=== PATIENT | male | born 1980 | race Caucasian/White ===

== ENCOUNTER 2016-09-02 08:55 | Day surgery (SDC) | payer OTHER, MEDICAID ==
[~2016-09-02 08:55] MED LIST: Lactated Ringers 1,000 ML IV SCH; Sodium Chloride 0.9% 10 ML Syringe FLUSH PRN
[2016-09-02] MEDS ORDERED: Lactated Ringers 1,000 ML IV SCH ×2 (09:00→11:00)
[2016-09-02] MEDS ORDERED: Sodium Chloride 0.9% 10 ML Syringe FLUSH PRN (09:00)
[2016-09-02] MEDS ORDERED: Morphine 10 MG/ML Syringe ONE ×2 (10:18→11:09)
[2016-09-02] MEDS ORDERED: Acetaminophen/HYDROcodone 325-10 MG Tab PO PRN (10:48)
[2016-09-02] MEDS ORDERED: Bupivacaine 0.5% 30 ML SDV ONE (11:08)
[2016-09-02] MEDS ORDERED: Ketorolac 30 MG/ML SDV IVPUSH ONE (11:40)
[2016-09-02] MEDS ORDERED: Dexamethasone 4 MG/ML 5 ML MDV IVPUSH ONE (11:40)
[2016-09-02] MEDS ORDERED: Propofol 200 MG/20 ML SDV IV ONE (11:40)
[2016-09-02] MEDS ORDERED: Ondansetron 4 MG/2 ML SDV IVPUSH ONE (11:40)
[2016-09-02] MEDS ORDERED: Succinylcholine/Normal Saline 200 MG/10 ML Syringe IV ONE (11:40)
[2016-09-02] MEDS ORDERED: Rocuronium 50 MG/5 ML Vial IV ONE (11:40)
[2016-09-02] MEDS ORDERED: Midazolam 1 MG/ML 2 ML SDV IV ONE (11:40)
[2016-09-02] MEDS ORDERED: HYDROmorphone 2 MG/ML SDV IV ONE (11:40)
[2016-09-02] MEDS ORDERED: Phenylephrine 1% 10 MG/ML SDV IV ONE (11:40)
[2016-09-02] MEDS ORDERED: Lactated Ringers 1,000 ML IV ONE (11:40)
[2016-09-02] MEDS ORDERED: fentaNYL 100 MCG/2 ML SDV IV ONE (11:40)
[2016-09-02 13:49] VITALS: BP 120/54
--- NOTE | 2016-09-02 18:57 | OR ---
DATE OF OPERATION: 09/02/2016 SURGEON: Girish Aguayo MD PREOPERATIVE DIAGNOSES: 1. Infraspinatus tear of left shoulder. 2. Adhesive capsulitis, left shoulder. POSTOPERATIVE DIAGNOSES: 1. Infraspinatus tear of left shoulder. 2. Adhesive capsulitis, left shoulder. PROCEDURE PERFORMED: 1. Repair of infraspinatus tendon tear of rotator cuff, left shoulder. 2. Closed manipulation of left shoulder with partial acromionectomy and incision of coracoacromial ligament. OPERATIVE NOTE: The patient was taken to the operating room, placed on the operating room table in supine position. General anesthetic was then administered. The patient was then carefully positioned in the beach chair position. A sterile ChloraPrep was then performed over the left shoulder anterior wall chest and the left arm down to the tip of the fingers. Sterile draping procedure was then carried out. The patient then had a 2-inch skin incision made over the anterolateral aspect back to the left shoulder. Skin and subcutaneous tissues were carefully dissected through and hemostasis was achieved utilizing electrocautery. The deltoid muscle insertion onto the anterolateral acromion was identified and incised with electrocautery. Coracoacromial ligament was found to be very tight and was released. Partial anterolateral acromionectomy was then performed, about 4 mm was removed at a 60 degrees angle. Undersurface was then smoothed with a small rongeur. Subacromial bursa was then removed. The patient's rotator cuff was inspected. There was no visual tear but on palpation around the infraspinatus insertion onto the humeral head, the patient had an undersurface tear that was detected with palpable indentation. We placed three #1 Ethibond sutures for reinforcement and advancement of the muscle. Two drill holes were then placed in the anterolateral aspect of the acromion. Deltoid muscle was then reattached with #1 Ethibond, and 3-0 Vicryl for the subcutaneous tissue, christine were utilized for closure of the skin. Following skin closure, we then injected the shoulder with Marcaine and morphine approximately 30 mL of solution. The area was cleansed and dried. Sterile dressings applied, arm positioned appropriately in a shoulder immobilizer. The patient tolerated the procedure well. No complications were encountered. PROCEDURES DONE: 1. Infraspinatus tendon tear repair, rotator cuff, left shoulder. 2. Closed manipulation of left shoulder (which was done prior to making skin incision) with release of coracoacromial ligament. ESTIMATED BLOOD LOSS: Less than 10 mL. /[id number] ARNOLD/DAVIDSON
== END 2016-09-02 14:34 | disposition home or self-care (01) ==
LOC: FB.SDS 08:55
PROVIDERS: ATTEND Orthopaedic Surgery
DX: S46.012A Strain of muscle(s) and tendon(s) of the rotator cuff of left shoulder, initial encounter (principal); M75.02 Adhesive capsulitis of left shoulder; E66.01 Morbid (severe) obesity due to excess calories; Z88.8 Allergy status to other drugs, medicaments and biological substances; Z79.899 Other long term (current) drug therapy; Z98.890 Other specified postprocedural states; F17.210 Nicotine dependence, cigarettes, uncomplicated; Z72.0 Tobacco use; Z78.9 Other specified health status; Z68.41 Body mass index [BMI] 40.0-44.9, adult
CPT/HCPCS: 23410; 23415; A9270; J1100; J1170; J1885; J2250; J2270; J2370; J2405; J2704; J3010; J7050; J7120

== ENCOUNTER 2017-03-04 19:58 | Emergency (ER) | payer MEDICAID, OTHER ==
[2017-03-04] MEDS ORDERED: Azithromycin 500 MG Tab PO ONE (20:27)
[2017-03-04] MEDS ORDERED: Codeine/guaiFENesin 100mg-10 MG/5 ML Soln 118 ML Bottle PO ONE (20:28)
[2017-03-04 20:31] VITALS: BP 146/78
--- NOTE | 2017-03-04 20:37 | EDM.PDOC ---
ED HPI GENERAL MEDICAL PROBLEM - General Chief Complaint: Respiratory Problem Stated Complaint: COUGH/ON AND OFF FEVER Time Seen by Provider: 03/04/17 20:20 Source of Information: Reports: Patient History Limitations: Reports: No Limitations - History of Present Illness INITIAL COMMENTS - FREE TEXT/NARRATIVE: 36 yo male 1/2 ppd smoker with no hx of asthma presents with a 2 week hx of a cough that is occasionally productive. Has felt warm at times, but has not measured his temp. Did not have a flu shot this season. Has not been to the clinic for these sx's. Has some chest tightness. His son had the same sx's for a few days, but got over it. He is age 16 yrs. Onset Date: 02/18/17 Duration: Week(s):, Waxing/Waning Location: Reports: Chest Quality: Reports: Other (mild tightness) Severity: Mild Improves with: Reports: None Worsens with: Reports: Other (coughing) Context: Reports: Sick Contact Associated Symptoms: Reports: Cough, Fever/Chills (felt warm at times). Denies : Nausea/Vomiting Treatments CLOTH WEAVER: Reports: Other (see below) (OTC cough med) - Related Data Allergies Allergy/AdvReac Type Severity Reaction Status Date / Time cocoa Allergy Swollen Verified 03/04/17 20:23 Throat naproxen AdvReac Vomiting Verified 03/04/17 20:22 and Diarrhea Home Meds: Home Meds Azithromycin [IJP: Azithromycin] 250 mg PO DAILY #6 tab 03/04/17 [Rx] Codeine/guaiFENesin [Robitussin AC] 5 - 10 ml PO Q4H PRN #1 bottle 03/04/17 [Rx] Past Medical History - Past Health History Medical/Surgical History: Denies Medical/Surgical History Cardiovascular History: Reports: Blood Clots/VTE/DVT Musculoskeletal History: Reports: Arthritis, Other (See Below) Other Musculoskeletal History: ADHESIVE CAPSULITIS SHOULDER --LEFT--ROTATOR CUFF TEAR Endocrine/Metabolic History: Reports: Obesity/BMI 30+ - Infectious Disease History Infectious Disease History: Reports: Chicken Pox - Past Surgical History Musculoskeletal Surgical History: Reports: Other (See Below) Other Musculoskeletal Surgeries/Procedures:: KNEE SURGERY Social & Family History - Family History Family Medical History: Noncontributory - Tobacco Use Smoking Status *Q: Current Every Day Smoker Years of Tobacco use: 10 Packs/Tins Daily: 0.5 - Caffeine Use Caffeine Use: Reports: Soda - Recreational Drug Use Recreational Drug Use: No - Living Situation & Occupation Living situation: Reports: ED ROS GENERAL - Review of Systems Review Of Systems: See Below Constitutional: Reports: Fever, Chills (no temp measured.) HEENT: Reports: Rhinitis (at times) Respiratory: Reports: Cough, Sputum. Denies: Shortness of Breath, Wheezing, Pleuritic Chest Pain, Hemoptysis Cardiovascular: Reports: No Symptoms GI/Abdominal: Reports: No Symptoms : Reports: No Symptoms Musculoskeletal: Reports: No Symptoms Skin: Reports: No Symptoms Neurological: Reports: No Symptoms ED EXAM, GENERAL - Physical Exam Exam: See Below Exam Limited By: No Limitations General Appearance: Alert, WD/WN, No Apparent Distress, Obese Eye Exam: Bilateral Eye: Normal Inspection Ears: Normal External Exam, Normal Canal, Hearing Grossly Normal, Normal TMs Ear Exam: Bilateral Ear: Auricle Normal, Canal Normal, TM normal Nose: Normal Inspection, Normal Mucosa, No Blood Throat/Mouth: Normal Inspection, Normal Lips, Normal Teeth, Normal Oropharynx, Normal Voice, No Airway Compromise Head: Atraumatic, Normocephalic Neck: Normal Inspection, Supple Respiratory/Chest: No Respiratory Distress, Decreased Breath Sounds (slightly decreased throughout), Rhonchi (scattered.). No: Rales, Wheezing, Stridor, Accessory Muscle Use, Retractions, Splinting, Prolonged Expiration Cardiovascular: Regular Rate, Rhythm, No Edema GI/Abdominal: Normal Bowel Sounds, Soft, Non-Tender Extremities: Normal Inspection, Normal Range of Motion, Non-Tender, No Pedal Edema Neurological: Alert, Oriented, CN II-XII Intact, Normal Cognition, No Motor/ Sensory Deficits Psychiatric: Normal Affect, Normal Mood Skin Exam: Warm, Dry, Intact, Normal Color, No Rash Lymphatic: No Adenopathy Course - Vital Signs Last Recorded V/S: Last Vital Signs Temp 36.6 C 03/04/17 20:15 Pulse 82 03/04/17 20:15 Resp 18 03/04/17 20:15 BP 146/78 H 03/04/17 20:15 Pulse Ox 97 03/04/17 20:15 - Orders/Labs/Meds Meds: Medications Discontinued Medications Generic Name Dose Route Start Last Admin Trade Name Freq PRN Reason Stop Dose Admin Azithromycin 500 mg 03/04/17 20:27 Zithromax PO 03/04/17 20:28 ONETIME ONE Departure - Departure Time of Disposition: 20:38 Disposition: Home, Self-Care 01 Condition: Good Clinical Impression: Bronchitis - Discharge Information Prescriptions: Azithromycin [IJP: Azithromycin] 250 mg PO DAILY #6 tab Codeine/guaiFENesin [Robitussin AC] 5 - 10 ml PO Q4H PRN #1 bottle PRN Reason: Cough Referrals: Girish Burnett MD [Primary Care Provider] - Forms: ED Department Discharge Additional Instructions: No smoking. Take azithromycin every evening until gone, Rx at [facility]. Take Robitussin AC syrup as directed for coughing. Drink ample fluids. Recheck with your provider early next week.
== END 2017-03-04 20:45 | disposition home or self-care (01) ==
LOC: FB.ED 19:58
DX: J40 Bronchitis, not specified as acute or chronic (principal); F17.210 Nicotine dependence, cigarettes, uncomplicated; E66.9 Obesity, unspecified; Z88.8 Allergy status to other drugs, medicaments and biological substances; Z91.018 Allergy to other foods
CPT/HCPCS: 99282; A9270